=== PATIENT | female | born 1985 | race Caucasian/White ===

== ENCOUNTER 2016-12-05 17:56 | Day surgery (SDC) | payer SELFPAY ==
[~2016-12-05] VITALS: Ht 162.6 cm; Wt 95.5 kg
[~2016-12-05 17:56] MED LIST: ALBUTEROL0.09 MG/A1 IH; AMOXICILLIN 8751 TAB PO; CEFTIN 250250 MG/TAB PO; CEFTIN500 MG PO; CHANTIX STARTER1 TAB PO; CLEOCIN HC150 MG/CAP PO; DECADRON 4MG TAB4 MG PO; DOXYCYCLINE 10100 MG PO; FLEXERIL 1010 MG/TAB PO; FLEXERIL10 MG PO; IMPLANON68 MG ID; LEXAPRO 10MG10 MG PO; LORTAB 5/500 501 TAB PO; MIRENA52 MG IU; MOTRIN 800800 MG/TAB PO; MOTRIN800 MG PO; NAPROSYN500 MG PO; NO HOME MEDICATIONS; NORCO 325 MG-51 TAB PO; PENICILLIN V500 MG PO; PERCOCET 325 MG1 TAB PO; PHENERGAN 25 TA25 MG PO; PHENERGAN W/CO120 M1 PO; PHENERGAN25 MG RC; PREDNISONE10 MG PO; PROMETHAZINE12.5 M5 PO; PYRIDIUM200 M1 PO; TUSS PO; ULTRAM 50MG TAB50 MG PO; XANAX 0.5MG0.5 MG PO; ZITHROMAX 250M250 MG PO; ZOFRAN 4MG T4 MG/TAB PO; [UNRECOGNIZED DRUG - REMARK]
[2016-12-05 18:49] LABS: BASO % 0.2 % (0.0-2.0); EOS # 0.1 (0.0-0.7); EOS % 0.7 % (0-4.0); GRAN # 7.5 (1.4-6.5); HEMATOCRIT 41.3 % (37.0-47.0); HEMOGLOBIN 13.8 g/dl (12.5-16.0); LYMPH # 1.7 (1.2-3.4); LYMPH % 17.2 % (20.0-51.0); MEAN CELL VOLUME 83 fl (80.0-100.0); MEAN CORPUSCULAR HEMOGLOBIN 28 pg (27.0-31.0); MEAN CORPUSCULAR HGB CONC 33 g/dl (33.0-37.0); MEAN PLATELET VOLUME 9.7 fl (7.4-10.4); MONO # 0.8 (0.1-0.6); MONO % 7.7 % (1.7-9.3); PLATELET COUNT 286 K/mm3 (130-400); REDCELL DISTRIBUTION WIDTH-CV 14.4 % (11.5-14.5); WHITE BLOOD COUNT 10.1 K/mm3 (4.8-10.8)
[2016-12-05 19:09] LABS: ADJUSTED CALCIUM 8.7 mg/dL (8.4-10.2); ALBUMIN 3.7 gm/dL (3.5-5.0); BILIRUBIN,TOTAL 0.8 mg/dL (0.0-1.0); CALCIUM 8.5 mg/dL (8.4-10.2); CREATININE, serum 0.61 mg/dL (0.52-1.25); POTASSIUM 3.7 mmol/L (3.4-5.0); TOTAL PROTEIN 7.4 gm/dL (6.4-8.2)
[2016-12-05 19:35] LABS: PH 5 (5-8); URINE APPEARANCE Hazy; URINE BACTERIA None Seen /hpf; URINE BILIRUBIN Negative (NEGATIVE); URINE BLOOD Negative (NEGATIVE); URINE COLOR Yellow; URINE GLUCOSE Negative (NEGATIVE); URINE KETONE 1+ (NEGATIVE)
[2016-12-05] MEDS ORDERED: ZOFRAN ODT4 MG PO (21:26)
[2016-12-05] MEDS ORDERED: NORCO 325 MG-51 TAB PO (21:26)
[2016-12-05 21:50] VITALS: BP 98/56; PULSE 95
[2016-12-05 22:05] VITALS: BP 102/47; PULSE 105
[2016-12-05 22:20] VITALS: BP 129/81; PULSE 92; TEMP 97.9
[2016-12-05 22:35] VITALS: BP 108/60; PULSE 16
[2016-12-05 23:05] VITALS: BP 95/54; PULSE 84
[2016-12-06 00:35] VITALS: BP 89/60; PULSE 80
[2016-12-06 01:35] VITALS: BP 102/54; PULSE 76
[2016-12-06 05:49] VITALS: BP 94/40; PULSE 68; TEMP 98.1
[2016-12-06] MEDS ORDERED: ZOFRAN ODT4 MG PO (09:19)
[2016-12-06] MEDS ORDERED: PERCOCET 325 MG1 TA3 PO (09:19)
[2016-12-06 09:31] VITALS: BP 95/61; PULSE 71; TEMP 98
== END 2016-12-06 10:22 | disposition home or self-care (01) ==
LOC: COL.ER 17:56 → SDCO 19:55 → SURG 22:00 → SDCO 12-06 10:22
PROVIDERS: Family Medicine
DX: K35.80 Unspecified acute appendicitis (principal); F17.210 Nicotine dependence, cigarettes, uncomplicated
CPT/HCPCS: OP; J1170; J1885; J2270; J2405; J2704; J3010; J7030; J7120; Q9967

== ENCOUNTER 2017-05-13 14:51 | Emergency (ER) | payer SELFPAY ==
[~2017-05-13] VITALS: Ht 165.1 cm; Wt 87.3 kg
[~2017-05-13 14:51] MED LIST changes: +PERCOCET 325 MG1 TA3 PO; +ZOFRAN ODT4 MG PO
[2017-05-13 14:59] VITALS: TEMP 98.6
[2017-05-13 16:38] VITALS: BP 94/56; PULSE 98
== END 2017-05-13 16:38 | disposition home or self-care (01) ==
LOC: COL.ER 14:51
DX: J06.9 Acute upper respiratory infection, unspecified (principal); F32.9 Major depressive disorder, single episode, unspecified; F17.210 Nicotine dependence, cigarettes, uncomplicated; Z90.49 Acquired absence of other specified parts of digestive tract
CPT/HCPCS: J1885

== ENCOUNTER 2017-08-19 23:36 | Emergency (ER) | payer SELFPAY ==
[~2017-08-19] VITALS: Ht 162.6 cm; Wt 84.1 kg
[2017-08-19 23:51] VITALS: TEMP 98.1
[2017-08-20 00:43] LABS: COLLECTION METHOD CATHETER
[2017-08-20 00:50] LABS: MUCOUS Present /lpf; PH 8 (5-8); SQUAMOUS EPITHELIAL 0-2 /hpf; URINE APPEARANCE Clear; URINE BACTERIA None Seen /hpf; URINE BILIRUBIN Negative (NEGATIVE); URINE BLOOD 1+ (NEGATIVE); URINE COLOR Yellow; URINE GLUCOSE Negative (NEGATIVE); URINE KETONE Negative (NEGATIVE); URINE LEUKOCYTE ESTERASE Negative (NEGATIVE); URINE PROTEIN(semi-quant) Negative (NEGATIVE); URINE UROBILINOGEN Negative (NEGATIVE); URINE WBC 0-2 /hpf
[2017-08-20 00:52] LABS: BASO % 0.3 % (0.0-2.0); EOS # 0.3 (0.0-0.7); EOS % 1.9 % (0-4.0); GRAN # 10.5 (1.4-6.5); GRAN % 68.2 % (42.2-75.2); HEMATOCRIT 41.3 % (37.0-47.0); HEMOGLOBIN 13.6 g/dl (12.5-16.0); LYMPH # 3.2 (1.2-3.4); LYMPH % 20.8 % (20.0-51.0); MEAN CELL VOLUME 85 fl (80.0-100.0); MEAN CORPUSCULAR HEMOGLOBIN 28 pg (27.0-31.0); MEAN CORPUSCULAR HGB CONC 33 g/dl (33.0-37.0); MEAN PLATELET VOLUME 9.7 fl (7.4-10.4); MONO # 1.3 (0.1-0.6); MONO % 8.5 % (1.7-9.3); PLATELET COUNT 362 K/mm3 (130-400); RED BLOOD COUNT 4.85 M/mm3 (4.10-5.30); WHITE BLOOD COUNT 15.4 K/mm3 (4.8-10.8)
[2017-08-20 01:04] LABS: ADJUSTED CALCIUM 8.9 mg/dL (8.4-10.2); ALBUMIN 4.1 gm/dL (3.5-5.0); BILIRUBIN,TOTAL 0.3 mg/dL (0.0-1.0); C-REACTIVE PROTEIN 1.8 mg/dL (0.0-0.9); CREATININE, serum 0.68 mg/dL (0.52-1.25); TOTAL PROTEIN 7.4 gm/dL (6.4-8.2)
[2017-08-20 02:08] VITALS: BP 112/70; PULSE 99
== END 2017-08-20 02:14 | disposition home or self-care (01) ==
LOC: COL.ER 23:36
PROVIDERS: Physician Assistant
DX: R10.13 Epigastric pain (principal); F17.210 Nicotine dependence, cigarettes, uncomplicated; Z32.02 Encounter for pregnancy test, result negative; Z90.49 Acquired absence of other specified parts of digestive tract; Z98.51 Tubal ligation status
CPT/HCPCS: J1885; J2405; J7030

== ENCOUNTER 2018-05-18 12:04 | Emergency (ER) | payer SELFPAY ==
[~2018-05-18] VITALS: Ht 162.6 cm; Wt 95.5 kg
[2018-05-18 12:05] VITALS: BP 110/52; TEMP 97.9
[2018-05-18] MEDS ORDERED: COUGH & COLD P120 ML PO (12:13)
[2018-05-18] MEDS ORDERED: ADVIL200 MG PO (12:13)
[2018-05-18] MEDS ORDERED: ZITHROMAX Z PA250 MG PO (12:26)
[2018-05-18] MEDS ORDERED: TUSS PO (12:26)
[2018-05-18 12:35] VITALS: PULSE 76
[2018-05-22] MEDS ORDERED: TESSALON PERLE200 MG PO (08:54)
== END 2018-05-18 12:36 | disposition home or self-care (01) ==
LOC: COL.ER 12:04
DX: J20.9 Acute bronchitis, unspecified (principal); F17.210 Nicotine dependence, cigarettes, uncomplicated; Z79.1 Long term (current) use of non-steroidal anti-inflammatories (NSAID)

== ENCOUNTER 2018-12-24 09:05 | Emergency (ER) | payer SELFPAY ==
[~2018-12-24] VITALS: Ht 162.6 cm; Wt 95.5 kg
[~2018-12-24 09:05] MED LIST changes: +ADVIL200 MG PO; +COUGH & COLD P120 ML PO; +TESSALON PERLE200 MG PO; +ZITHROMAX Z PA250 MG PO
[2018-12-24 09:32] VITALS: BP 126/62; TEMP 98.9
[2018-12-24] MEDS ORDERED: TAMIFLU 75MG75 MG PO (10:44)
[2018-12-24 11:18] VITALS: PULSE 88
== END 2018-12-24 11:18 | disposition home or self-care (01) ==
LOC: COL.ER 09:05
DX: J10.1 Influenza due to other identified influenza virus with other respiratory manifestations (principal); F17.210 Nicotine dependence, cigarettes, uncomplicated; Z90.89 Acquired absence of other organs

== ENCOUNTER 2019-01-21 12:01 | Emergency (ER) | payer MEDICAID ==
[~2019-01-21] VITALS: Ht 162.6 cm; Wt 95.0 kg
[~2019-01-21 12:01] MED LIST changes: +TAMIFLU 75MG75 MG PO
[2019-01-21 12:05] VITALS: TEMP 98.8
[2019-01-21] MEDS ORDERED: PREDNISONE20 MG PO (12:37)
[2019-01-21] MEDS ORDERED: VENTOLIN0.09 MG IH (12:37)
[2019-01-21] MEDS ORDERED: TESSALON P100 MG/CAP PO (12:37)
[2019-01-21 13:30] LABS: BASO % 0.3 % (0.0-2.0); EOS # 0.1 (0.0-0.7); EOS % 0.6 % (0-4.0); GRAN # 5.8 (1.4-6.5); GRAN % 52.8 % (42.2-75.2); HEMATOCRIT 40.6 % (37.0-47.0); HEMOGLOBIN 13.4 g/dl (12.5-16.0); LYMPH # 4.2 (1.2-3.4); LYMPH % 37.8 % (20.0-51.0); MEAN CELL VOLUME 85 fl (80.0-100.0); MEAN CORPUSCULAR HEMOGLOBIN 28 pg (27.0-31.0); MEAN CORPUSCULAR HGB CONC 33 g/dl (33.0-37.0); MEAN PLATELET VOLUME 9.3 fl (7.4-10.4); MONO # 0.9 (0.1-0.6); PLATELET COUNT 291 K/mm3 (130-400); RED BLOOD COUNT 4.77 M/mm3 (4.10-5.30); REDCELL DISTRIBUTION WIDTH-CV 14.2 % (11.5-14.5)
[2019-01-21 13:44] LABS: ALANINE AMINOTRANSFERASE 20 U/L (9-52); ALBUMIN 3.6 gm/dL (3.5-5.0); ALKALINE PHOSPHATASE 89 U/L (50-136); ANION GAP 8 mmol/L (7-16); AST,SGOT 26 U/L (15-37); BILIRUBIN,TOTAL 0.2 mg/dL (0.0-1.0); BLOOD UREA NITROGEN 15 mg/dL (7-17); C-REACTIVE PROTEIN 1.1 mg/dL (0.0-0.9); CALCIUM 8.6 mg/dL (8.4-10.2); CARBON DIOXIDE 23 mmol/L (22-30); CHLORIDE 107 mmol/L (98-107); CREATININE, serum 0.64 (0.52-1.25); GLUCOSE 101 mg/dL (74-106); LIPASE 47 U/L (23-300); POTASSIUM 3.2 mmol/L (3.4-5.0); SODIUM 138 mmol/L (137-145)
[2019-01-21 13:53] LABS: TROPONIN-I < 0.012 ng/mL (0.000-0.035)
[2019-01-21] MEDS ORDERED: PREDNISONE10 MG PO (15:19)
[2019-01-21] MEDS ORDERED: NORCO 325 MG-51 TAB PO (15:20)
[2019-01-21 15:47] VITALS: BP 119/61; PULSE 78
== END 2019-01-21 15:53 | disposition home or self-care (01) ==
LOC: COL.ER 12:01
PROVIDERS: Emergency Medicine
DX: J20.9 Acute bronchitis, unspecified (principal); J18.1 Lobar pneumonia, unspecified organism; F41.9 Anxiety disorder, unspecified; Z87.891 Personal history of nicotine dependence; Z79.1 Long term (current) use of non-steroidal anti-inflammatories (NSAID)
CPT/HCPCS: J7030; J7512

== ENCOUNTER 2023-07-22 17:20 | Emergency (ER) | payer OTHER ==
[~2023-07-22] VITALS: Ht 162.6 cm; Wt 100.5 kg
[~2023-07-22 17:20] MED LIST changes: +PREDNISONE20 MG PO; +TESSALON P100 MG/CAP PO; +VENTOLIN0.09 MG IH
[2023-07-22 19:45] VITALS: BP 128/78; PULSE 88; TEMP 96.8
== END 2023-07-22 19:45 | disposition home or self-care (01) ==
LOC: COL.ER 17:20
DX: S61.412A Laceration without foreign body of left hand, initial encounter (principal); W32.1XXA Accidental handgun malfunction, initial encounter